=== PATIENT | female | born 1950 | race Caucasian/White ===

== ENCOUNTER 2017-03-21 10:05 | Day surgery (SDC) | payer BC ==
[~2017-03-21 10:05] MED LIST: Buffered Lidocaine 0.9% SYRIN* 5 ML/SYR SYRINGE INTRADERM ONE
[2017-03-21] MEDS ORDERED: Bupivacaine 0.25% SDV* 30 ML ONE (10:15)
[2017-03-21] MEDS ORDERED: Midazolam* 1 MG/ML 5 ML VIAL (5 MG) ONE (10:40)
[2017-03-21] MEDS ORDERED: fentaNYL* 50 MCG/ML 2 ML VIAL (100 MCG VIAL) ONE (10:40)
[2017-03-21 14:02] VITALS: BP 185/64
--- NOTE | 2017-03-21 17:37 | OP ---
DATE OF OPERATION: 03/21/17 [facility] DATE OF : 46 SURGEON: Adrien Aguirre MD CORPORATE TECHNICAL RECRUITER: SHEILA Donato ANESTHESIOLOGIST: Dr. Youngblood. ANESTHESIA: Local MAC. PRE-OP DIAGNOSIS: Left carpal tunnel syndrome. POST-OP DIAGNOSIS: Left carpal tunnel syndrome. OPERATIVE PROCEDURE: Left open carpal tunnel release. INDICATIONS: Sandy has had progressive carpal tunnel symptoms. She had a 4th metacarpal fracture treated closed several months back and her symptoms have been progressing since then. We talked about risks and benefits and she elected to proceed with surgery. ESTIMATED BLOOD LOSS: 2 mL. COMPLICATIONS: None. FINDINGS: As expected. DESCRIPTION OF PROCEDURE: Sandy was seen in the preoperative holding area. The correct site, side and procedure were identified. We came back to the operating room where she got some anesthesia and I infiltrated the operative area with 0.25% plain Marcaine. The arm was then prepped and draped in the usual fashion. A formal time-out was performed. The arm was exsanguinated with the Esmarch and the tourniquet inflated to 250 mmHg. The standard 2 to 3 cm incision was made in the location for an open carpal tunnel release. Dissection was carried down through the subcutaneous tissue and the palmar fascia. The transverse carpal ligament was released just off the radial aspect of the hook of the hamate. The release was done from distal to proximal. When I got proximal, I released the fascia and the subcutaneous tissue and this was retracted volarly and ulnarly with the Bennett retractor. Under direct visualization, I then released the rest of the transverse carpal ligament and the distal antebrachial fascia to a level several centimeters proximal to the wrist flexion crease. The release was checked proximally and distally. Everything looked good, so we irrigated out the wound. Skin was closed with 4-0 nylon suture. The wound was dressed with Xeroform, 4x4's, sterile Webril, and an Michael bandage. Tourniquet was deflated and the hand pinked up immediately. She was then taken to the recovery room in stable condition. [id number]/[facility] #: [id number] MTDD
== END 2017-03-21 13:46 | disposition home or self-care (01) ==
LOC: OREAST 10:05
PROVIDERS: ATTEND Orthopaedic Surgery Hand Surgery
DX: G56.02 Carpal tunnel syndrome, left upper limb (principal); E03.9 Hypothyroidism, unspecified
CPT/HCPCS: J2250; J3010

== ENCOUNTER 2018-08-16 07:09 | Day surgery (SDC) | payer MEDICARE, BC ==
[~2018-08-16 07:09] MED LIST changes: +Acetaminophen TAB* 325 MG PO PRN; -Buffered Lidocaine 0.9% SYRIN* 5 ML/SYR SYRINGE INTRADERM ONE; +Buffered Lidocaine 1% SYRIN* 1 ML/SYRINGE INTRADERM ONE
[2018-08-16] MEDS ORDERED: Midazolam* 1 MG/ML 2 ML VIAL (2 MG) ONE (07:50)
[2018-08-16 09:18] VITALS: BP 175/68
--- NOTE | 2018-08-16 09:42 | OP ---
DATE OF OPERATION: 08/16/2018. DATE OF : 1950. SURGEON: Watson Rocha M.D. PREOPERATIVE DIAGNOSIS: Cataract left eye. POSTOPERATIVE DIAGNOSIS: Cataract left eye. OPERATIVE PROCEDURE: Extracapsular cataract extraction with intraocular lens implant left eye. PROCEDURE: The patient was brought to the operating room after being given 1/2% Alcaine with epineph rine drops in the preoperative area. The eye was prepped and draped in the usual sterile fashion. S terile drape and eyelid speculum were placed. Again, topical 1/2% Alcaine with epinephrine was given . A paracentesis incision was made at the 3 o'clock position with the No.75 blade. Clear cornea inc ision 2.2 x 2.2-mm was created at the 6 o'clock position starting at the anterior limbus using the 2. 2-mm keratome. The anterior chamber was irrigated with 0.4 mL of 1% non-preservative intracameral li docaine and filled with DisCoVisc. A capsulorrhexis was completed using the cystotome and the Utrata forceps. Hydrodissection was performed with balanced salt solution. The lens nucleus was removed wi th the Phacoemulsification handpiece without incident. Cortex was removed with the irrigation-aspira tion handpiece. The capsular bag was re-inflated using DisCoVisc and an [id number] 20.5 implant was inse rted with the shooter and oriented to the 74 degree meridian. Horizontal reference barker were made w ith the patient in the preoperative area in a seated position. All of these measurements were confir med with ORA. The irrigation-aspiration handpiece was used to remove all residual DisCoVisc. The ey e was refilled with balanced salt solution and the wound checked and found to be watertight. Topical Maxitrol drops were given. [id number]/[facility] #: [id number]
[2018-08-16] MEDS ORDERED: Lidocaine 2% EPI 1:200000 MPF*10-20 ML VIAL ONE (12:12)
[2018-08-16] MEDS ORDERED: Lidocaine 1%* 5 ML VIAL ONE (12:12)
[2018-08-16] MEDS ORDERED: Cyclopentolate 1% OPTH.SOL* 2 ML BTL ONE (12:12)
[2018-08-16] MEDS ORDERED: Neomycin/Polymy/Dex OPTH.SUSP* MAXITROL 0.1% 5 ML ONE (12:12)
[2018-08-16] MEDS ORDERED: Phenylephrine 2.5% OPTH.SOL* 2 ML BTL ONE (12:12)
[2018-08-16] MEDS ORDERED: Povidone Iodine 5% OPTH* 30 ML BTL ONE (12:12)
[2018-08-16] MEDS ORDERED: Ketorolac 0.5% OPHTH (NF) 0.5 % 5 ML BTL ONE (12:12)
[2018-08-16] MEDS ORDERED: acetaZOLAMIDE TAB* 250 MG ONE (12:12)
[2018-08-16] MEDS ORDERED: Proparacaine 0.5% OPHTH.SOL* 15 ML BTL ONE (12:13)
== END 2018-08-16 09:40 | disposition home or self-care (01) ==
LOC: OREAST 07:09
PROVIDERS: ATTEND Specialist
DX: H25.812 Combined forms of age-related cataract, left eye (principal); H43.813 Vitreous degeneration, bilateral; E03.9 Hypothyroidism, unspecified; M19.90 Unspecified osteoarthritis, unspecified site
CPT/HCPCS: A9270-GY; J2250; V2787

== ENCOUNTER → 2018-08-23 10:45 | Day surgery (SDC) | payer MEDICARE, BC ==
[~2018-08-23 10:45] MED LIST changes: +Cyclopentolate 1% OPTH.SOL* 2 ML BTL ONE; +Ketorolac 0.5% OPHTH (NF) 0.5 % 5 ML BTL ONE; +Lidocaine 1%* 5 ML VIAL ONE; +Lidocaine 2% EPI 1:200000 MPF*10-20 ML VIAL ONE; +Neomycin/Polymy/Dex OPTH.SUSP* MAXITROL 0.1% 5 ML ONE; +Phenylephrine 2.5% OPTH.SOL* 2 ML BTL ONE; +Povidone Iodine 5% OPTH* 30 ML BTL ONE; +Proparacaine 0.5% OPHTH.SOL* 15 ML BTL ONE
[2018-08-23 12:00] VITALS: BP 158/63
--- NOTE | 2018-08-23 12:35 | OP ---
DATE OF OPERATION: 08/23/18 [facility] DATE OF : 46 SURGEON: Watson Rocha M.D. PREOPERATIVE DIAGNOSIS: Cataract, right. POSTOPERATIVE DIAGNOSIS: Cataract, right. OPERATIVE PROCEDURE: Extracapsular cataract extraction with IOL, intraocular lens implant right eye. DESCRIPTION OF PROCEDURE: The patient was brought to the operating room after being given 1/2% Alcaine with epinephrine drops in the preoperative area. The eye was prepped and draped in the usual sterile fashion. Sterile drape and eyelid speculum were placed. Again, topical 1/2% Alcaine with epinephrine was given. A paracentesis incision was made at the 9 o'clock position with the No.75 blade. Clear cornea incision 2.2 x 2.2-mm was created at the 12 o'clock position starting at the anterior limbus using the 2.2-mm keratome. The anterior chamber was irrigated with 0.4 mL of 1% non-preservative intracameral lidocaine and filled with DisCoVisc. A capsulorrhexis was completed using the cystotome and the Utrata forceps. Hydrodissection was performed with balanced salt solution. The lens nucleus was removed with the Phacoemulsification handpiece without incident. Cortex was removed with the irrigation-aspiration handpiece. The capsular bag was re-inflated using DisCoVisc and an SN6AT5 20.5 implant was inserted with the shooter, oriented to the 88 degree meridian. Horizontal reference barker were made with the patient in the preoperative area in a seated position and all measurements were confirmed using ORA. The irrigation-aspiration handpiece was used to remove all residual DisCoVisc. The eye was refilled with balanced salt solution and the wound checked and found to be watertight. Topical Maxitrol drops were given. [id number]/[facility] #: [id number] [facility]ALSam[facility]
== END | disposition home or self-care (01) ==
LOC: OREAST 10:45
PROVIDERS: ATTEND Specialist
DX: H25.811 Combined forms of age-related cataract, right eye (principal); H43.813 Vitreous degeneration, bilateral; E03.9 Hypothyroidism, unspecified; M19.90 Unspecified osteoarthritis, unspecified site; Z88.0 Allergy status to penicillin; Z88.8 Allergy status to other drugs, medicaments and biological substances
CPT/HCPCS: A9270-GY; V2787

== ENCOUNTER 2022-04-29 10:14 | Inpatient (IN) ==
[~2022-04-29 10:14] MED LIST changes: -Acetaminophen TAB* 325 MG PO PRN; -Buffered Lidocaine 1% SYRIN* 1 ML/SYRINGE INTRADERM ONE; -Cyclopentolate 1% OPTH.SOL* 2 ML BTL ONE; -Ketorolac 0.5% OPHTH (NF) 0.5 % 5 ML BTL ONE; -Lidocaine 1%* 5 ML VIAL ONE; -Lidocaine 2% EPI 1:200000 MPF*10-20 ML VIAL ONE; +Mineral Oil ENEMA 118 ML/BOTTLE BOTTLE PR SCH; -Neomycin/Polymy/Dex OPTH.SUSP* MAXITROL 0.1% 5 ML ONE; -Phenylephrine 2.5% OPTH.SOL* 2 ML BTL ONE; -Povidone Iodine 5% OPTH* 30 ML BTL ONE; -Proparacaine 0.5% OPHTH.SOL* 15 ML BTL ONE; +Sodium Phosphate ADULT ENEMA 133 ML BTL PR SCH
[2022-04-29 10:49] LABS: Calcium 9.3 mg/dL (8.6-10.3); Potassium 4.1 mmol/L (3.5-5.0)
[2022-04-29 10:55] LABS: eGFR CKD-EPI 95.3 (>60)
[2022-04-29 12:16] LABS: ABS Lymphocytes 0.3 10^3/ul (1.0-4.8); ABS Monocytes 0.3 10^3/ul (0-0.8); ABS Neutrophils 7.8 10^3/ul (1.5-7.7); Eosinophil % 0.5 %; Hematocrit 42 % (35-47); Hemoglobin 13.5 g/dL (12.0-16.0); Lymphocyte % 4.1 %; Mean Corpuscular HGB Conc 32 g/dL (31-36); Mean Corpuscular Hemoglobin 29 pg (27-31); Mean Corpuscular Volume 89 fL (80-97); Mean Platelet Volume 7.9 fL (7.4-10.4); Nucleated Red Blood Cells % 0.1; Platelet Count 369 10^3/uL (150-450); Red Blood Count 4.71 10^6 /uL (3.70-4.87); Red Cell Distribution Width 16 % (10-15); White Blood Count 8.6 10^3/uL (3.5-10.8)
[2022-04-29] MEDS ORDERED: Ondansetron 4 mg VIAL 2 MG/ML 2 ml VIAL IV PRN (15:44)
[2022-04-29] MEDS: NS 0.9% 1000 ml BAG 1,000 ML IV SCH (19:00)
[2022-04-29] MEDS: Metoclopramide 5 MG/ML VIAL (10 mg) IV SCH (20:48)
[2022-04-29] MEDS: Enoxaparin 40 MG/0.4 ML SYR SUBCUT SCH (20:52)
[2022-04-29] MEDS: Morphine ORAL CONCENTRATE 5 MG/0.25 ML ORAL.SYRIN PO SCH (20:58)
[2022-04-30] MEDS: Metoclopramide 5 MG/ML VIAL (10 mg) IV SCH ×5 (02:18→20:33)
[2022-04-30] MEDS: Morphine ORAL CONCENTRATE 5 MG/0.25 ML ORAL.SYRIN PO SCH ×4 (02:18→20:32)
[2022-04-30] MEDS: NS 0.9% 1000 ml BAG 1,000 ML IV SCH ×2 (05:00→15:51)
[2022-04-30 06:37] LABS: Calcium 7.9 mg/dL (8.6-10.3); Potassium 4.2 mmol/L (3.5-5.0); eGFR CKD-EPI 102.6 (>60)
[2022-04-30] MEDS ORDERED: Polyethylene Glycol 3350 17 GM PACKET PO PRN (09:00)
[2022-04-30] MEDS ORDERED: Sodium Phosphate ADULT ENEMA 133 ML BTL PR PRN (10:12)
[2022-04-30 11:05] LABS: ABS Lymphocytes 0.2 10^3/ul (1.0-4.8); ABS Monocytes 0.2 10^3/ul (0-0.8); ABS Neutrophils 5.7 10^3/ul (1.5-7.7); Eosinophil % 0.6 %; Hematocrit 36 % (35-47); Hemoglobin 11.9 g/dL (12.0-16.0); Lymphocyte % 3.3 %; Mean Corpuscular HGB Conc 33 g/dL (31-36); Mean Corpuscular Hemoglobin 29 pg (27-31); Mean Corpuscular Volume 88 fL (80-97); Mean Platelet Volume 6.8 fL (7.4-10.4); Platelet Count 262 10^3/uL (150-450); Red Blood Count 4.11 10^6 /uL (3.70-4.87); Red Cell Distribution Width 15 % (10-15); White Blood Count 6.2 10^3/uL (3.5-10.8)
[2022-04-30] MEDS: Enoxaparin 40 MG/0.4 ML SYR SUBCUT SCH (20:27)
[2022-04-30] MEDS: Senna TAB 8.6 mg TAB PO SCH (20:34)
[2022-04-30] MEDS: Magnesium Hydroxide LIQ 30 ML UDC PO SCH (20:34)
[2022-05-01] MEDS: Metoclopramide 5 MG/ML VIAL (10 mg) IV SCH ×4 (02:37→21:35)
[2022-05-01] MEDS: Morphine ORAL CONCENTRATE 5 MG/0.25 ML ORAL.SYRIN PO SCH ×4 (02:38→21:34)
[2022-05-01 05:54] LABS: Albumin 2.5 g/dL (3.2-5.2); Albumin/Globulin Ratio 1.3 (1-3); Calcium 8.2 mg/dL (8.6-10.3); Globulin 1.9 g/dL (2-4); Potassium 4.2 mmol/L (3.5-5.0); Total Bilirubin 0.8 mg/dL (0.2-1.0); Total Protein 4.4 g/dL (6.4-8.9); eGFR CKD-EPI 98.8 (>60)
[2022-05-01] MEDS: Magnesium Hydroxide LIQ 30 ML UDC PO SCH (08:35)
[2022-05-01] MEDS ORDERED: Polyethylene Glycol 3350 17 GM PACKET PO SCH (09:00)
[2022-05-01] MEDS ORDERED: Polyethylene Glycol 3350 17 GM PACKET PO PRN (09:56)
[2022-05-01] MEDS ORDERED: Magnesium Hydroxide LIQ 30 ML UDC PO SCH (10:00)
[2022-05-01] MEDS ORDERED: COVID VACC, BIVAL PFIZER-TRIS 30 MCG/0.3 ML SYR IM ONE (14:00)
[2022-05-01] MEDS ORDERED: NS 0.9% 500 ml BAG 500 ML IV ONE (14:30)
[2022-05-01] MEDS ORDERED: Iohexol 350 (CONTRAST) 500 ML MDV IV ONE (15:50)
[2022-05-01] MEDS: Senna TAB 8.6 mg TAB PO SCH (22:14)
[2022-05-01] MEDS: Enoxaparin 40 MG/0.4 ML SYR SUBCUT SCH (22:15)
[2022-05-02] MEDS: Metoclopramide 5 MG/ML VIAL (10 mg) IV SCH ×2 (03:25→09:01)
[2022-05-02] MEDS: Morphine ORAL CONCENTRATE 5 MG/0.25 ML ORAL.SYRIN PO SCH ×4 (03:32→20:08)
[2022-05-02] MEDS: D5W 1/2 NS KCl 20 meq 1000 ml 1,000 ML IV SCH ×2 (10:01→23:21)
[2022-05-02] MEDS: Metoclopramide 5 MG/ML VIAL (10 mg) IV PRN (18:50)
[2022-05-02] MEDS: Enoxaparin 40 MG/0.4 ML SYR SUBCUT SCH (20:12)
[2022-05-03] MEDS: Metoclopramide 5 MG/ML VIAL (10 mg) IV PRN (00:27)
[2022-05-03] MEDS: Morphine 2 MG/ML SYRINGE IV PRN ×2 (00:28→06:01)
[2022-05-03] MEDS: Morphine ORAL CONCENTRATE 5 MG/0.25 ML ORAL.SYRIN PO SCH ×4 (01:41→20:02)
[2022-05-03] MEDS: Levothyroxine 100 MCG/5 ML VIAL IV SCH (05:57)
[2022-05-03] MEDS: D5W 1/2 NS KCl 20 meq 1000 ml 1,000 ML IV SCH (13:21)
[2022-05-03 18:42] LABS: Albumin 2.4 g/dL (3.2-5.2); Albumin/Globulin Ratio 1.2 (1-3); Magnesium 1.6 mg/dL (1.9-2.7); Phosphorus 1.4 mg/dL (2.5-5.0); Potassium 4.1 mmol/L (3.5-5.0); Total Bilirubin 0.6 mg/dL (0.2-1.0); Total Protein 4.4 g/dL (6.4-8.9); eGFR CKD-EPI 105.8 (>60)
[2022-05-04] MEDS: Morphine 2 MG/ML SYRINGE IV PRN ×2 (00:53→20:52)
[2022-05-04] MEDS: Morphine ORAL CONCENTRATE 5 MG/0.25 ML ORAL.SYRIN PO SCH ×4 (01:26→20:51)
[2022-05-04] MEDS: D5W 1/2 NS KCl 20 meq 1000 ml 1,000 ML IV SCH (03:08)
[2022-05-04] MEDS: Metoclopramide 5 MG/ML VIAL (10 mg) IV PRN ×2 (05:15→21:05)
[2022-05-04] MEDS: Levothyroxine 100 MCG/5 ML VIAL IV SCH (05:16)
[2022-05-04 06:20] LABS: Albumin 2.5 g/dL (3.2-5.2); Albumin/Globulin Ratio 1.3 (1-3); Calcium 8.1 mg/dL (8.6-10.3); Magnesium 1.6 mg/dL (1.9-2.7); Phosphorus 1.9 mg/dL (2.5-5.0); Total Bilirubin 0.5 mg/dL (0.2-1.0); Total Protein 4.5 g/dL (6.4-8.9); eGFR CKD-EPI 106.5 (>60)
[2022-05-04] MEDS ORDERED: Magnesium Sulfate 2 gm BAG 2 GM/50 ML BAG IVPB ONE (09:46)
[2022-05-04] MEDS ORDERED: SODIUM PHOSPHATE IV ONE (09:47)
[2022-05-04] MEDS ORDERED: NS IV ONE (09:47)
[2022-05-04] MEDS: TPN 24 HR with Dextrose 50% Water 500 ML, Amino Acid Infusion 10% 850 ML, Sterile Water... CENT\\PICC SCH (14:05)
[2022-05-04] MEDS: Enoxaparin 40 MG/0.4 ML SYR SUBCUT SCH (20:52)
[2022-05-05] MEDS: Morphine 2 MG/ML SYRINGE IV PRN ×2 (01:12→05:37)
[2022-05-05] MEDS: Morphine ORAL CONCENTRATE 5 MG/0.25 ML ORAL.SYRIN PO SCH ×2 (01:13→08:28)
[2022-05-05] MEDS: Levothyroxine 100 MCG/5 ML VIAL IV SCH (05:38)
[2022-05-05 06:36] LABS: Albumin 2.2 g/dL (3.2-5.2); Anion Gap 6 mmol/L (2-11); CO2 Carbon Dioxide 31 mmol/L (22-32); Chloride 95 mmol/L (101-111); Magnesium 1.6 mg/dL (1.9-2.7); Potassium 3.7 mmol/L (3.5-5.0); Sodium 132 mmol/L (135-145)
[2022-05-05 06:42] LABS: ALT 8 U/L (7-52); AST 11 U/L (13-39); Albumin/Globulin Ratio 1.1 (1-3); Alkaline Phosphatase 82 U/L (35-149); Blood Urea Nitrogen 16 mg/dL (6-24); Cholesterol 124 mg/dL; Glucose 130 mg/dL (70-100); Phosphorus 2.3 mg/dL (2.5-5.0); Prealbumin 3 mg/dL (18-38); Total Protein 4.2 g/dL (6.4-8.9); Triglycerides 98 mg/dL; eGFR CKD-EPI 111.2 (>60)
[2022-05-05] MEDS ORDERED: Magnesium Sulfate IV 1GM/100ML 1 GM/100 ML BAG IV ONE (07:40)
[2022-05-05 09:33] LABS: ABS Lymphocytes 0.1 10^3/ul (1.0-4.8); ABS Monocytes 0.3 10^3/ul (0-0.8); ABS Neutrophils 1.5 10^3/ul (1.5-7.7); Eosinophil % 1.8 %; Hematocrit 40 % (35-47); Hemoglobin 13.3 g/dL (12.0-16.0); Lymphocyte % 6.1 %; Mean Corpuscular HGB Conc 34 g/dL (31-36); Mean Corpuscular Hemoglobin 29 pg (27-31); Mean Corpuscular Volume 87 fL (80-97); Mean Platelet Volume 7.1 fL (7.4-10.4); Nucleated Red Blood Cells % 0.1; Platelet Count 292 10^3/uL (150-450); Red Blood Count 4.53 10^6 /uL (3.70-4.87); Red Cell Distribution Width 16 % (10-15)
[2022-05-05] MEDS ORDERED: Morphine ORAL CONCENTRATE 5 MG/0.25 ML ORAL.SYRIN PO PRN (10:17)
[2022-05-05] MEDS ORDERED: Prochlorperazine 5 mg/ml 2 ml VIAL (10 mg) IV PRN (10:17)
[2022-05-05] MEDS ORDERED: Ondansetron 4 mg VIAL 2 MG/ML 2 ml VIAL IV PRN (10:17)
[2022-05-05] MEDS: Ondansetron 4 mg VIAL 2 MG/ML 2 ml VIAL IV PRN ×2 (10:38→22:57)
[2022-05-05] MEDS ORDERED: Morphine 4 MG/ML VIAL (1 ml) ONE (13:49)
[2022-05-05] MEDS: TPN 24 HR with Dextrose 50% Water 500 ML, Amino Acid Infusion 10% 850 ML, Sterile Water... CENT\\PICC SCH (17:09)
[2022-05-05] MEDS: Enoxaparin 40 MG/0.4 ML SYR SUBCUT SCH (20:28)
[2022-05-05] MEDS: Morphine ER 15 mg TAB ** extended release PO SCH (22:49)
[2022-05-06] MEDS: Levothyroxine 100 MCG/5 ML VIAL IV SCH (04:55)
[2022-05-06] MEDS: Morphine ER 15 mg TAB ** extended release PO SCH ×3 (07:00→22:13)
[2022-05-06] MEDS: Ondansetron 4 mg VIAL 2 MG/ML 2 ml VIAL IV PRN (07:10)
[2022-05-06 08:11] LABS: Hematocrit 39 % (35-47); Hemoglobin 12.9 g/dL (12.0-16.0); Mean Corpuscular HGB Conc 33 g/dL (31-36); Mean Corpuscular Hemoglobin 29 pg (27-31); Mean Corpuscular Volume 89 fL (80-97); Mean Platelet Volume 7.6 fL (7.4-10.4); Platelet Count 294 10^3/uL (150-450); Red Blood Count 4.39 10^6 /uL (3.70-4.87); Red Cell Distribution Width 15 % (10-15); White Blood Count 3.5 10^3/uL (3.5-10.8)
[2022-05-06 08:52] LABS: Albumin 2.4 g/dL (3.2-5.2); Albumin/Globulin Ratio 1.1 (1-3); Globulin 2.2 g/dL (2-4); Magnesium 1.9 mg/dL (1.9-2.7); Phosphorus 3.4 mg/dL (2.5-5.0); Potassium 4.7 mmol/L (3.5-5.0); Total Bilirubin 0.5 mg/dL (0.2-1.0); Total Protein 4.6 g/dL (6.4-8.9); eGFR CKD-EPI 100.4 (>60)
[2022-05-06 08:54] LABS: ALT 10 U/L (7-52); AST 14 U/L (13-39); Albumin 2.3 g/dL (3.2-5.2); Alkaline Phosphatase 106 U/L (35-149); Anion Gap 10 mmol/L (2-11); Blood Urea Nitrogen 31 mg/dL (6-24); CO2 Carbon Dioxide 26 mmol/L (22-32); Chloride 97 mmol/L (101-111); Cholesterol 107 mg/dL; Globulin 2.3 g/dL (2-4); Glucose 154 mg/dL (70-100); Magnesium 1.9 mg/dL (1.9-2.7); Phosphorus 3.3 mg/dL (2.5-5.0); Potassium 4.7 mmol/L (3.5-5.0); Prealbumin < 3 mg/dL (18-38); Sodium 133 mmol/L (135-145); Total Protein 4.6 g/dL (6.4-8.9); Triglycerides 73 mg/dL; eGFR CKD-EPI 100.9 (>60)
[2022-05-06 09:01] LABS: RBC Morphology Normal (Normal)
[2022-05-06 09:02] LABS: ABS Lymphocytes 0.1 10^3/ul (1.0-4.8); ABS Monocytes 0.8 10^3/ul (0-0.8); ABS Neutrophils 2.7 10^3/ul (1.5-7.7); Lymphocyte % 3.6 %; Toxic Granulation 1+
[2022-05-06 14:11] LABS: PCO2 Arterial 47 mmHg (35-45); PO2 Arterial 64 mmHg (80-100)
[2022-05-06] MEDS ORDERED: TPN 24 HR with Dextrose 50% Water 500 ML, Amino Acid Infusion 10% 850 ML, Sterile Water... CENT\\PICC SCH (17:01)
[2022-05-06] MEDS: Enoxaparin 40 MG/0.4 ML SYR SUBCUT SCH (20:42)
[2022-05-07] MEDS: Morphine ER 15 mg TAB ** extended release PO SCH (04:47)
[2022-05-07 05:12] LABS: Hematocrit 39 % (35-47); Hemoglobin 12.9 g/dL (12.0-16.0); Mean Corpuscular HGB Conc 33 g/dL (31-36); Mean Corpuscular Hemoglobin 29 pg (27-31); Mean Corpuscular Volume 89 fL (80-97); Mean Platelet Volume 7.9 fL (7.4-10.4); Platelet Count 306 10^3/uL (150-450); Red Blood Count 4.41 10^6 /uL (3.70-4.87); Red Cell Distribution Width 16 % (10-15); White Blood Count 6.1 10^3/uL (3.5-10.8)
[2022-05-07] MEDS: Levothyroxine 100 MCG/5 ML VIAL IV SCH (05:43)
[2022-05-07 06:04] LABS: eGFR CKD-EPI 32.9 (>60)
[2022-05-07 06:05] LABS: Potassium 5.3 mmol/L (3.5-5.0)
[2022-05-07 06:06] LABS: RBC Morphology Normal (Normal)
[2022-05-07 06:07] LABS: ABS Lymphocytes 0.2 10^3/ul (1.0-4.8); ABS Monocytes 0.4 10^3/ul (0-0.8); ABS Neutrophils 5.5 10^3/ul (1.5-7.7); Lymphocyte % 2.7 %; Nucleated Red Blood Cells % 0.1
[2022-05-07 07:35] VITALS: BP 64/43
[2022-05-07] MEDS ORDERED: Lactated Ringers 1000 ml BAG 1,000 ML IV ONE (07:50)
[2022-05-07] MEDS ORDERED: LACTATED RINGERS IV ONE (07:52)
[2022-05-07] MEDS ORDERED: Cefepime 1 GM VIAL IM ONE (07:52)
[2022-05-07] MEDS ORDERED: Cefepime 1 GM in Dextrose 1 GM/50 ML BAG IV ONE (08:00)
[2022-05-07] MEDS ORDERED: Vancomycin per Pharmacy 1 EA NOTE FOLLOW UP SCH (08:00)
[2022-05-07] MEDS ORDERED: LORazepam 2 mg VIAL 1 ml IV PUSH PRN ×2 (08:17→12:58)
[2022-05-07] MEDS ORDERED: Atropine 1% (ORAL/SL) 15 ML BTL SL PRN ×2 (08:17→11:04)
[2022-05-07 08:27] LABS: Hematocrit 40 % (35-47); Hemoglobin 12.9 g/dL (12.0-16.0); Mean Corpuscular HGB Conc 32 g/dL (31-36); Mean Corpuscular Hemoglobin 29 pg (27-31); Mean Corpuscular Volume 89 fL (80-97); Mean Platelet Volume 8.3 fL (7.4-10.4); Platelet Count 303 10^3/uL (150-450); Red Blood Count 4.46 10^6 /uL (3.70-4.87); Red Cell Distribution Width 16 % (10-15); White Blood Count 7.5 10^3/uL (3.5-10.8)
[2022-05-07] MEDS ORDERED: Vancomycin 1,000 MG in NS 0.9% 250 ml 250 ML IVPB ONE (08:30)
[2022-05-07 09:03] LABS: Albumin 2.1 g/dL (3.2-5.2); Albumin/Globulin Ratio 0.9 (1-3); Calcium 9.3 mg/dL (8.6-10.3); Globulin 2.3 g/dL (2-4); Total Bilirubin 0.6 mg/dL (0.2-1.0); Total Protein 4.4 g/dL (6.4-8.9); eGFR CKD-EPI 27.2 (>60)
[2022-05-07 10:00] LABS: Platelet Morphology Large
[2022-05-07 10:01] LABS: RBC Morphology Normal (Normal)
[2022-05-07 10:02] LABS: ABS Lymphocytes 0.2 10^3/ul (1.0-4.8); ABS Monocytes 0.6 10^3/ul (0-0.8); ABS Neutrophils 6.6 10^3/ul (1.5-7.7); Lymphocyte % 3.2 %; Nucleated Red Blood Cells % 0.1
[2022-05-07] MEDS ORDERED: Scopolamine 1 mg/72hr PATCH TRANSDERM SCH (13:00)
== END 2022-05-07 13:55 | disposition expired | DRG 374 ==
LOC: CHOA 10:14 → SUATTDRO 18:50 → SSU 18:50
PROVIDERS: ADMIT Internal Medicine Medical Oncology; ATTEND Internal Medicine